=== PATIENT | female | born 1970 | race Caucasian/White ===

== ENCOUNTER 2016-12-28 17:59 | Emergency (ER) | payer OTHER ==
--- NOTE | 2016-12-28 18:16 | ED ---
Psych HPI - General Source: patient, RN notes reviewed Mode of arrival: EMS <Elizabeth Hillman - Last Filed: 12/29/16 02:56> <Toño Campos - Last Filed: 12/29/16 09:38> - General Chief Complaint: Psychiatric Symptoms Stated Complaint: ETOH Time Seen by Provider: 12/28/16 18:01 - History of Present Illness Initial Comments: 46-year-old female presents to the emergency department with a chief complaint of alcohol abuse. Patient states she is an alcoholic. Patient states that she has been to rehab about 2 years ago. Patient states she drinks due to financial issues at home. Patient denies any suicidal ideation to me however per family and the patient was suicidal and ate 2 containers of toothpaste. Patient denies this time and she denies any suicidal or homicidal ideation. Patient states that "her family wants her to go to rehab." Patient at this time is not complaining of any medical complaints.Patient denies any recent fever, chills, shortness of breath, chest pain, back pain, abdominal pain, nausea vomiting, numbness or tingling, dysuria or hematuria, constipation or diarrhea, headaches or visual changes, or any other current symptoms. (Elizabeth Hillman) - Related Data Home Medications Medication Instructions Recorded Confirmed NIFEdipine XL [Procardia Xl] 60 mg PO DAILY 12/28/16 12/28/16 Pantoprazole Sodium [Protonix] 40 mg PO DAILY 12/28/16 12/28/16 Previous Rx's Medication Instructions Recorded Ranitidine HCl [Zantac] 150 mg PO BID #30 tab 05/30/16 Allergies Allergy/AdvReac Type Severity Reaction Status Date / Time Penicillins Allergy Rash/Hives Verified 12/28/16 18:50 Sulfa (Sulfonamide Allergy Rash/Hives Verified 12/28/16 18:50 Antibiotics) sulfamethoxazole Allergy Rash/Hives Verified 12/28/16 18:50 [From Bactrim] trimethoprim [From Bactrim] Allergy Rash/Hives Verified 12/28/16 18:50 Review of Systems ROS Other: All systems not noted in ROS Statement are negative. <Elizabeth Hillman - Last Filed: 12/29/16 02:56> ROS Other: All systems not noted in ROS Statement are negative. <Toño Campos - Last Filed: 12/29/16 09:38> ROS Statement: Those systems with pertinent positive or pertinent negative responses have been documented in the HPI. Past Medical History Past Medical History: No Reported History Additional Past Medical History / Comment(s): raynauds History of Any Multi-Drug Resistant Organisms: None Reported Past Surgical History: Back Surgery Past Anesthesia/Blood Transfusion Reactions: No Reported Reaction Past Psychological History: Anxiety, Depression Smoking Status: Never smoker Past Alcohol Use History: Abuse, Daily, Heavy Past Drug Use History: None Reported - Past Family History Mother Family Medical History: Cancer Additional Family Medical History / Comment(s): pancreatic Father Additional Family Medical History / Comment(s): alcoholism. <Elizabeth Hillman - Last Filed: 12/29/16 02:56> General Exam Limitations: no limitations General appearance: alert, in no apparent distress Head exam: Present: atraumatic ENT exam: Present: normal exam, mucous membranes moist Neck exam: Present: normal inspection. Absent: tenderness, meningismus, lymphadenopathy Respiratory exam: Present: normal lung sounds bilaterally. Absent: respiratory distress, wheezes, rales, rhonchi, stridor Cardiovascular Exam: Present: regular rate, normal rhythm, normal heart sounds. Absent: systolic murmur, diastolic murmur, rubs, gallop, clicks Neurological exam: Present: alert, oriented X3, CN II-XII intact, normal gait. Absent: motor sensory deficit Psychiatric exam: Present: depressed. Absent: homicidal ideation, suicidal ideation Skin exam: Present: warm, dry, intact, normal color. Absent: rash <Elizabeth Hillman - Last Filed: 12/29/16 02:56> Course <Elizabeth Hillman - Last Filed: 12/29/16 02:56> <Toño Campos - Last Filed: 12/29/16 09:38> Vital Signs 12/28/16 12/28/16 12/29/16 18:02 21:48 00:01 Temperature 99.0 F Pulse Rate 78 98 84 Respiratory 18 18 18 Rate Blood Pressure 129/84 132/83 120/75 O2 Sat by Pulse 100 99 97 Oximetry 12/29/16 12/29/16 05:20 07:38 Temperature 98.4 F 97.2 F L Pulse Rate 90 96 Respiratory 18 18 Rate Blood Pressure 128/71 139/76 O2 Sat by Pulse 99 99 Oximetry - Reevaluation(s) Reevaluation #1: 12/29/16 02:56 This case will be signed out to Dr. Cuello. (Elizabeth Hillman) Reevaluation #2: 12/29/16 09:38 Please patient is medically clear for psychiatric evaluation (Toño Campos) Medical Decision Making <Elizabeth Hillman - Last Filed: 12/29/16 02:56> <Toño Campos - Last Filed: 12/29/16 09:38> - Medical Decision Making 46-year-old female presents to the emergency department with a chief complaint of EtOH abuse. Patient does have dictation due to family state patient states that she was suicidal to them. At this time the patient does not appear to be suffering acute medical emergency. This time patient is cleared to be evaluated by psychiatry. (Elizabeth Hillman) 46 female ER for evaluation of psychiatric disease. Patient seen and evaluated by psychiatry, currently not homicidal or suicidal. Patient will be discharged home (Toño Campos) - Lab Data Lab Results 12/28/16 12/28/16 12/29/16 Range/Units 18:20 18:20 05:30 POC Glucose (mg/dL) 101 H (75-99) mg/dL POC Glu Stock Checker ID [email or web address] Urine Opiates Screen Not Detected (NotDetected) Ur Oxycodone Screen Not Detected (NotDetected) Urine Methadone Screen Not Detected (NotDetected) Ur Propoxyphene Screen Not Detected (NotDetected) Ur Barbiturates Screen Not Detected (NotDetected) U Tricyclic Antidepress Not Detected (NotDetected) Ur Phencyclidine Scrn Not Detected (NotDetected) Ur Amphetamines Screen Not Detected (NotDetected) U Methamphetamines Scrn Not Detected (NotDetected) U Benzodiazepines Scrn Not Detected (NotDetected) Urine Cocaine Screen Not Detected (NotDetected) U Marijuana (THC) Screen Not Detected (NotDetected) Serum Alcohol 331 mg/dL Disposition <Elizabeth Hillman - Last Filed: 12/29/16 02:56> <Toño Campos - Last Filed: 12/29/16 09:38> Clinical Impression: Alcoholic intoxication, Depression Disposition: HOME SELF-CARE Condition: Good Instructions: Abuse of Alcohol (ED) Referrals: None,Stated [Primary Care Provider] - 1-2 days
[2016-12-28] MEDS ORDERED: THIAMINE 100 MG/ML 2 ML VIAL IM STA (20:15)
[2016-12-28] MEDS ORDERED: LORazepam 2 MG/ML SYRINGE IV PRN ×3 (20:15)
[2016-12-28] MEDS ORDERED: ONDANSETRON ODT 4 MG TAB PO STA (22:15)
[2016-12-28] MEDS ORDERED: ACETAMINOPHEN TAB 500 MG TAB PO STA (22:17)
[2016-12-29] MEDS ORDERED: ONDANSETRON ODT 4 MG TAB PO STA ×2 (01:26→05:31)
[2016-12-29] MEDS ORDERED: ACETAMINOPHEN TAB 500 MG TAB PO STA (05:19)
[2016-12-29 05:37] LABS: Glucose,Whole Blood 101 mg/dL (75-99)
[2016-12-29 09:48] VITALS: BP 135/84; PULSE 80; RESP 20; TEMP 97.8
[2016-12-29] MEDS ORDERED: THIAMINE 100 MG TAB PO SCH (12:00)
== END 2016-12-29 09:46 | disposition home or self-care (01) ==
LOC: EC 17:59
DX: F10.129 Alcohol abuse with intoxication, unspecified (principal); F32.9 Major depressive disorder, single episode, unspecified; Z79.899 Other long term (current) drug therapy; Z88.0 Allergy status to penicillin; Z88.1 Allergy status to other antibiotic agents; Z88.2 Allergy status to sulfonamides
CPT/HCPCS: 36415 ×2; 80306; 80320; 99284; 96372; J3411

== ENCOUNTER 2019-06-03 15:28 | Emergency (ER) | payer MEDICAID, OTHER ==
[2019-06-03 15:52] VITALS: RESP 18; TEMP 99.5
[2019-06-03] MEDS ORDERED: ONDANSETRON 4 MG/2 ML VIAL IVP STA (16:34)
[2019-06-03] MEDS ORDERED: FAMOTIDINE 20 MG/2 ML VIAL IV STA (16:34)
[2019-06-03] MEDS ORDERED: SODIUM CHLORIDE 0.9% 1,000 ML IV ONE (16:34)
[2019-06-03] MEDS ORDERED: SODIUM CHLORIDE 0.9% 500 ML 500 ML IV ONE (16:34)
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
[2019-06-03 17:38] VITALS: BP 120/96; PULSE 86
== END 2019-06-03 18:03 | disposition home or self-care (01) ==
LOC: EC 15:28
DX: F10.129 Alcohol abuse with intoxication, unspecified (principal); Z79.899 Other long term (current) drug therapy; Z88.0 Allergy status to penicillin; Z88.1 Allergy status to other antibiotic agents; Z88.2 Allergy status to sulfonamides
CPT/HCPCS: 99283; 96374; 96375; 96361; J2405

== ENCOUNTER 2024-03-15 13:44 | Observation (INO) | payer MEDICAID, OTHER ==
--- NOTE | 2024-03-15 14:21 | ED ---
Abdominal Pain HPI - General Source: patient, RN notes reviewed Mode of arrival: ambulatory Limitations: no limitations - History of Present Illness MD Complaint: abdominal pain <Lucille Haynes - Last Filed: 03/15/24 14:19> <Coty Gonsales - Last Filed: 03/16/24 11:36> - General Chief Complaint: Abdominal Pain Stated Complaint: Abdominal Pain Time Seen by Provider: 03/15/24 17:50 - History of Present Illness Initial Comments: Quick Note: This is a 53-year-old female who presents to the emergency department for abdominal pain. States that it started 5 days ago. This was initially in the lower abdomen and is now encompassing the majority of the abdomen. Reports associated nausea and vomiting. She initially had diarrhea, but states that she has now been constipated. (Lucille Haynes) 53-year-old female who presents emergency department for abdominal pain. States that it started 5 days ago. Pain is in the left lower quadrant. She has as sociated nausea with decreased appetite. Patient reports to constipation and has not had a bowel movement in several days. She also admits to fevers. No changes in her urination to include dysuria, hematuria or difficulty voiding. No vaginal bleeding or discharge. No concern for sexually transmitted infections. Patient denies history of STDs or PID. Patient's last menstrual cycle was 2 years ago. No history of similar pain in the past. No other alleviating, precipitating or modifying factors (Coty Gonsales) - Related Data Home Medications Medication Instructions Recorded Confirmed Pantoprazole Sodium [Protonix] 40 mg PO DAILY 12/28/16 03/15/24 ARIPiprazole [Abilify] 1 mg PO HS 03/15/24 03/15/24 Escitalopram [Lexapro] 20 mg PO HS 03/15/24 03/15/24 Ondansetron Odt [Zofran Odt] 4 mg PO TID PRN 03/15/24 03/15/24 traZODone HCL [Desyrel] 50 mg PO HS PRN 03/15/24 03/15/24 Allergies Allergy/AdvReac Type Severity Reaction Status Date / Time cephalexin [From Keflex] Allergy Rash/Hives Verified 03/15/24 19:32 Penicillins Allergy Rash/Hives Verified 03/15/24 19:32 Sulfa (Sulfonamide Allergy Rash/Hives Verified 03/15/24 19:32 Antibiotics) sulfamethoxazole Allergy Rash/Hives Verified 03/15/24 19:32 [From Bactrim] trimethoprim [From Bactrim] Allergy Rash/Hives Verified 03/15/24 19:32 Review of Systems ROS Other: All systems not noted in ROS Statement are negative. <ChauaaronLucille - Last Filed: 03/15/24 14:19> ROS Other: All systems not noted in ROS Statement are negative. <Coty Gonsales Linh - Last Filed: 03/16/24 11:36> ROS Statement: Those systems with pertinent positive or pertinent negative responses have been documented in the HPI. Past Medical History Past Medical History: No Reported History Additional Past Medical History / Comment(s): raynauds History of Any Multi-Drug Resistant Organisms: None Reported Past Surgical History: Back Surgery Past Anesthesia/Blood Transfusion Reactions: No Reported Reaction Past Psychological History: Anxiety, Depression Past Alcohol Use History: Abuse, Daily, Heavy Past Drug Use History: None Reported - Past Family History Mother Family Medical History: Cancer Additional Family Medical History / Comment(s): pancreatic Father Additional Family Medical History / Comment(s): alcoholism. <Lucille Haynes - Last Filed: 03/15/24 14:19> General Exam <Lucille Haynes - Last Filed: 03/15/24 14:19> General appearance: alert, in no apparent distress Head exam: Present: atraumatic, normocephalic, normal inspection Eye exam: Present: normal appearance, PERRL, EOMI. Absent: scleral icterus, conjunctival injection, periorbital swelling ENT exam: Present: normal exam, mucous membranes moist Neck exam: Present: normal inspection. Absent: tenderness, meningismus, lymphadenopathy Respiratory exam: Present: normal lung sounds bilaterally. Absent: respiratory distress, wheezes, rales, rhonchi, stridor Cardiovascular Exam: Present: normal rhythm, tachycardia, normal heart sounds. Absent: systolic murmur, diastolic murmur, rubs, gallop, clicks GI/Abdominal exam: Present: soft, tenderness (llq tenderness), normal bowel sounds. Absent: distended, guarding, rebound, rigid Extremities exam: Present: normal inspection, full ROM, normal capillary refill. Absent: tenderness, pedal edema, joint swelling, calf tenderness Back exam: Present: normal inspection Neurological exam: Present: alert, oriented X3, CN II-XII intact Psychiatric exam: Present: normal affect, normal mood Skin exam: Present: warm, dry, intact, normal color. Absent: rash <Coty Gonsales - Last Filed: 03/16/24 11:36> - General Exam Comments Initial Comments: Visual Physical Exam Vital signs reviewed General: Well-appearing, nontoxic, no acute distress. Head: Normocephalic, atraumatic Eyes: PERRLA, EOMI ENT: Airway patent Chest: Nonlabored breathing Skin: No visual rash, normal skin tone Neuro: Alert and oriented 3 Musculoskeletal: No gross abnormalities (Lucille Haynes) Course Vital Signs 03/15/24 03/15/24 03/15/24 14:17 21:20 22:26 Temperature 99 F 100.8 F H 99.2 F Pulse Rate 104 H 115 H Pulse Rate [ Left Brachial] Respiratory 20 16 16 Rate Blood Pressure 109/70 103/57 Blood Pressure [Left Arm] O2 Sat by Pulse 99 98 Oximetry 03/15/24 22:49 Temperature 99.2 F Pulse Rate Pulse Rate [ 108 H Left Brachial] Respiratory 17 Rate Blood Pressure Blood Pressure 98/50 [Left Arm] O2 Sat by Pulse 97 Oximetry Medical Decision Making <Lucille Haynes - Last Filed: 03/15/24 14:19> - Lab Data Result diagrams: 03/16/24 03:09 03/16/24 03:09 <RussellarjunCoty Linh - Last Filed: 03/16/24 11:36> - Medical Decision Making I performed the QuickNote portion of this chart. Signed Lucille Haynes PA-C. (Lucille Haynes) 180 - US read - source identified 1846 - antibiotics ordered by myself Was pt. sent in by a medical professional or institution (ANNIE Anthony, GEOPHYSICAL PROSPECTOR, urgent care, hospital, or senior living...) When possible be specific @ -No Did you speak to anyone other than the patient for history (EMS, parent, family, police, friend...)? What history was obtained from this source @ -No Did you review nursing and triage notes (agree or disagree)? Why? @ -I reviewed and agree with nursing and triage notes Were old charts reviewed (outside hosp., previous admission, EMS record, old EKG, old radiological studies, urgent care reports/EKG's, senior living records)? Report findings @ -No old charts were reviewed Differential Diagnosis (chest pain, altered mental status, abdominal pain women, abdominal pain men, vaginal bleeding, weakness, fever, dyspnea, syncope, headache, dizziness, GI bleed, back pain, seizure, CVA, palpatations, mental health, musculoskeletal)? @ -Differential Abdominal Pain Women: Appendicitis, Cholecystitis, diverticulosis, ischemic bowel, pancreatitis, hepatitis, UTI, gastroenteritis, AAA, incarcerated hernia, bowel obstruction, constipation, inflammatory bowel, hepatitis, peptic ulcer disease, splenic infarction, perforated viscus, vulvitis, ovarian torsion, PID, kidney stone, placenta abruption, this is not meant to be an all-inclusive list EKG interpreted by me (3pts min.). @ -Not done X-rays interpreted by me (1pt min.). @ -None done CT interpreted by me (1pt min.). @ -Yes and demonstrates ovarian mass. Recommend ultrasound to rule out torsion. U/S interpreted by me (1pt. min.). @ -Ultrasound performed which demonstrates no torsion. Possibility of tubo- ovarian abscess What testing was considered but not performed or refused? (CT, X-rays, U/S, labs)? Why? @ -Pelvic exam however patient is in the hallway What meds were considered but not given or refused? Why? @ -None Did you discuss the management of the patient with other professionals (professionals i.e. , PA, GEOPHYSICAL PROSPECTOR, lab, RT, psych nurse, social welfare research worker, desktop administrator, teacher, electronic warfare officer, casework manager)? Give summary @ -Spoke with Dr. Grissom who recommends antibiotics and ID consult. spoke with Dr. Diaz who accepted admission Was smoking cessation discussed for >3mins.? @ -No Was critical care preformed (if so, how long)? @ -No Were there social determinants of health that impacted care today? How? (Homelessness, low income, unemployed, alcoholism, drug addiction, transportation, low edu. Level, literacy, decrease access to med. care, care home, rehab)? @ -No Was there de-escalation of care discussed even if they declined (Discuss DNR or withdrawal of care, Hospice)? DNR status @ -No What co-morbidities impacted this encounter? (DM, HTN, Smoking, COPD, CAD, Cancer, CVA, ARF, Chemo, Hep., AIDS, mental health diagnosis, sleep apnea, morbid obesity)? @ -None Was patient admitted / discharged? Hospital course, mention meds given and route, prescriptions, significant lab abnormalities, going to OR and other pertinent info. @ -Upon arrival patient was evaluated in the waiting room and studies were ordered. IV access was established and laboratory studies are conducted. CT and ultrasound was performed. Patient is then brought back to a hallway bed. I did perform a physical assessment and discussed results. Ultrasound does recognize the patient source of infection as possible tubo-ovarian abscess. I did call OBGYN contact lens blocker. Dr. Grissom presents to the emergency department to evaluate another patient and I did speak to him in regards to this patient. He does not recommend any surgical intervention. He does recommend antibiotics. Antibiotic choice is difficult on this patient due to her allergies. She does think that she tolerated Rocephin well. I discussed attempting to try another IV cephalosporin for the patient was agreeable. Spoke with Dr. Diaz for the admission. Undiagnosed new problem with uncertain prognosis? @ -No Drug Therapy requiring intensive monitoring for toxicity (Heparin, Nitro, Insulin, Cardizem)? @ -No Were any procedures done? @ -No Diagnosis/symptom? @ -Acute left lower quadrant abdominal pain, pyrexia, suspected tubo-ovarian abscess Acute, or Chronic, or Acute on Chronic? @ -Acute Uncomplicated (without systemic symptoms) or Complicated (systemic symptoms)? @ -Complicated Side effects of treatment? @ -No Exacerbation, Progression, or Severe Exacerbation? @ -No Poses a threat to life or bodily function? How? (Chest pain, USA, CA, pneumonia, PE, COPD, DKA, ARF, appy, cholecystitis, CVA, Diverticulitis, Homicidal, Suicidal, threat to staff... and all critical care pts) @ -No (Coty Gonsales) - Lab Data Lab Results 03/15/24 03/15/24 03/15/24 Range/Units 14:10 14:10 14:10 WBC 15.3 H (3.8-10.6) k/uL RBC 4.01 (3.80-5.40) m/uL Hgb 12.8 (11.4-16.0) gm/dL Hct 37.1 (34.0-46.0) % MCV 92.5 (80.0-100.0) fL MCH 32.0 (25.0-35.0) pg MCHC 34.6 (31.0-37.0) g/dL RDW 13.6 (11.5-15.5) % Plt Count 242 (150-450) k/uL MPV 9.4 Neutrophils % 86 % Lymphocytes % 7 % Monocytes % 5 % Eosinophils % 2 % Basophils % 0 % Neutrophils # 13.2 H (1.3-7.7) k/uL Lymphocytes # 1.1 (1.0-4.8) k/uL Monocytes # 0.7 (0-1.0) k/uL Eosinophils # 0.2 (0-0.7) k/uL Basophils # 0.1 (0-0.2) k/uL Sodium 135 L (137-145) mmol/L Potassium 3.3 L (3.5-5.1) mmol/L Chloride 98 (98-107) mmol/L Carbon Dioxide 27 (22-30) mmol/L Anion Gap 10 mmol/L BUN 13 (7-17) mg/dL Creatinine 0.49 L (0.52-1.04) mg/dL Est GFR (CKD-EPI)AfAm >90 (>60 ml/min/1.73 sqM) Est GFR (CKD-EPI)NonAf >90 (>60 ml/min/1.73 sqM) Glucose 110 H (74-99) mg/dL Plasma Lactic Acid Freddy 1.0 (0.7-2.0) mmol/L Calcium 9.7 (8.4-10.2) mg/dL Total Bilirubin 1.2 (0.2-1.3) mg/dL AST 33 (14-36) U/L ALT 22 (4-34) U/L Alkaline Phosphatase 93 (38-126) U/L Total Protein 6.8 (6.3-8.2) g/dL Albumin 4.2 (3.5-5.0) g/dL Amylase 38 (30-110) U/L Lipase 24 (23-300) U/L Urine Color Urine Appearance (Clear) Urine pH (5.0-8.0) Ur Specific Otis (1.001-1.035) Urine Protein (Negative) Urine Glucose (UA) (Negative) Urine Ketones (Negative) Urine Blood (Negative) Urine Nitrite (Negative) Urine Bilirubin (Negative) Urine Urobilinogen (<2.0) mg/dL Ur Leukocyte Esterase (Negative) Urine RBC (0-5) /hpf Urine WBC (0-5) /hpf Ur Squamous Epith Cells (0-4) /hpf Urine Mucus (None) /hpf Urine HCG, Qual (Not Detectd) 03/15/24 03/15/24 Range/Units 16:53 16:53 WBC (3.8-10.6) k/uL RBC (3.80-5.40) m/uL Hgb (11.4-16.0) gm/dL Hct (34.0-46.0) % MCV (80.0-100.0) fL MCH (25.0-35.0) pg MCHC (31.0-37.0) g/dL RDW (11.5-15.5) % Plt Count (150-450) k/uL MPV Neutrophils % % Lymphocytes % % Monocytes % % Eosinophils % % Basophils % % Neutrophils # (1.3-7.7) k/uL Lymphocytes # (1.0-4.8) k/uL Monocytes # (0-1.0) k/uL Eosinophils # (0-0.7) k/uL Basophils # (0-0.2) k/uL Sodium (137-145) mmol/L Potassium (3.5-5.1) mmol/L Chloride (98-107) mmol/L Carbon Dioxide (22-30) mmol/L Anion Gap mmol/L BUN (7-17) mg/dL Creatinine (0.52-1.04) mg/dL Est GFR (CKD-EPI)AfAm (>60 ml/min/1.73 sqM) Est GFR (CKD-EPI)NonAf (>60 ml/min/1.73 sqM) Glucose (74-99) mg/dL Plasma Lactic Acid Freddy (0.7-2.0) mmol/L Calcium (8.4-10.2) mg/dL Total Bilirubin (0.2-1.3) mg/dL AST (14-36) U/L ALT (4-34) U/L Alkaline Phosphatase (38-126) U/L Total Protein (6.3-8.2) g/dL Albumin (3.5-5.0) g/dL Amylase (30-110) U/L Lipase (23-300) U/L Urine Color Yellow Urine Appearance Clear (Clear) Urine pH 6.5 (5.0-8.0) Ur Specific Otis >1.050 H (1.001-1.035) Urine Protein Trace H (Negative) Urine Glucose (UA) Negative (Negative) Urine Ketones Trace H (Negative) Urine Blood Negative (Negative) Urine Nitrite Negative (Negative) Urine Bilirubin Negative (Negative) Urine Urobilinogen 6.0 (<2.0) mg/dL Ur Leukocyte Esterase Moderate H (Negative) Urine RBC 6 H (0-5) /hpf Urine WBC 7 H (0-5) /hpf Ur Squamous Epith Cells 1 (0-4) /hpf Urine Mucus Few H (None) /hpf Urine HCG, Qual Not Detected (Not Detectd) Disposition <Lucille Haynes - Last Filed: 03/15/24 14:19> Is patient prescribed a controlled substance at d/c from ED?: No Time of Disposition: 20:49 Decision to Admit Reason: Admit from EC Decision Date: 03/15/24 Decision Time: 20:49 <Coty Gonsales - Last Filed: 03/16/24 11:36> Clinical Impression: Tubo-ovarian abscess, LLQ pain, Fever Disposition: ADMITTED IP TO THIS HOSP Condition: Stable
[2024-03-15 14:41] LABS: Basophils # (A) 0.1 k/uL (0-0.2); Basophils % (A) 0 %; Eosinophils # (A) 0.2 k/uL (0-0.7); Eosinophils % (A) 2 %; HCT 37.1 % (34.0-46.0); HGB 12.8 gm/dL (11.4-16.0); Lymphocytes # (A) 1.1 k/uL (1.0-4.8); Lymphocytes % (A) 7 %; MCHC 34.6 g/dL (31.0-37.0); MCV 92.5 fL (80.0-100.0); Mean Platelet Volume 9.4; Monocytes # (A) 0.7 k/uL (0-1.0); Monocytes % (A) 5 %; Neutrophils # (A) 13.2 k/uL (1.3-7.7); Neutrophils % (A) 86 %; Platelet Count 242 k/uL (150-450); RBC 4.01 m/uL (3.80-5.40); RDW 13.6 % (11.5-15.5); WBC 15.3 k/uL (3.8-10.6)
[2024-03-15 15:25] LABS: ALT 22 U/L (4-34); AST 33 U/L (14-36); African American GFR (CKD) >90 (>60 ml/min/1.73 sqM); Albumin 4.2 g/dL (3.5-5.0); Alkaline Phosphatase 93 U/L (38-126); Amylase 38 U/L (30-110); Anion Gap 10 mmol/L; Blood Urea Nitrogen 13 mg/dL (7-17); Calcium 9.7 mg/dL (8.4-10.2); Carbon Dioxide 27 mmol/L (22-30); Chloride 98 mmol/L (98-107); Glucose 110 mg/dL (74-99); Lipase 24 U/L (23-300); Non-African American GFR(CKD) >90 (>60 ml/min/1.73 sqM); Potassium 3.3 mmol/L (3.5-5.1); Sodium 135 mmol/L (137-145); Total Bilirubin 1.2 mg/dL (0.2-1.3); Total Protein 6.8 g/dL (6.3-8.2)
--- NOTE | 2024-03-15 16:37 | CT ---
EXAMINATION TYPE: CT abdomen pelvis w con DATE OF EXAM: 03/15/2024 COMPARISON: NONE HISTORY: 53-year-old female lower abdomen pain. With fever chills and nausea and vomiting TECHNIQUE: Contiguous axial scanning of the abdomen and pelvis following administration of 100 ml Iso carlitos 300 IV contrast. Delayed images through the kidneys and coronal/sagittal reconstructions perform ed. CT DLP: 607.5 mGycm Automated exposure control for dose reduction was used. FINDINGS: Partially visualized breast implants. Heart normal size without pericardial effusion. Lung bases ruth r without pleural effusion. Low attenuation of the hepatic parenchyma suggesting underlying fatty infiltration. Portal venous sys tem is patent. No biliary ductal dilatation. Gallbladder, adrenal glands, left kidney, spleen, and atrophic pancreas and no gross abnormality. There is a cortical fat density lesion measuring 1.3 cm posterior mid right kidney suggesting a small AML. Tiny fatty umbilical hernia noted. No dilated small bowel, free fluid, or free air. No mesenteric or retroperitoneal lymphadenopathy. Mild proximal sigmoid diverticulosis. No convincing findings of acute diverticulitis. However, there is some inflammation in the left lower quadrant/left adnexa. This seems to be centered over a multilocular cystic lesion of the left adnexa measuring 4.6 cm. Multi stranding is present he re. The adjacent sigmoid colon shows mild mural thickening probably on a reactive basis Uterus is anteverted. IUD in place. Right ovary not well seen. No pelvic lymphadenopathy identified. Bones: Moderate to severe degenerative disc disease L5-S1. Hypertrophic facet arthropathy lower lumba r spine with degenerative grade 1 retrolisthesis L4-L5. IMPRESSION: 1. INFLAMMATION WHICH APPEARS TO BE CENTERED AT THE LEFT OVARY WHICH DEMONSTRATES A MULTILOCULAR CYST IC STRUCTURE MEASURING 4.6 CM. THE EXACT ETIOLOGY IS UNCLEAR. OVARIAN TORSION AND TUBO-OVARIAN ABSCES S ARE SOME DIFFERENTIAL POSSIBILITIES. 2. THERE IS SOME MURAL THICKENING OF THE ADJACENT MID SIGMOID COLON LIKELY REACTIVE INFLAMMATION. PRO XIMAL SIGMOID DIVERTICULOSIS WITHOUT CONVINCING FINDINGS OF ACUTE DIVERTICULITIS.
[2024-03-15 17:20] LABS: Appearance,Urine Clear (Clear); Bilirubin,Urine Negative (Negative); Blood,Urine Negative (Negative); Color,Urine Yellow; Glucose,Urine (UA) Negative (Negative); Ketones,Urine Trace (Negative); Leukocyte Esterase,Urine Moderate (Negative); Mucus,Urine Few /hpf; Nitrite,Urine Negative (Negative); PH, Urine 6.5 (5.0-8.0); Protein,Urine Trace (Negative); RBC,Urine 6 /hpf (0-5); Squamous Epithelial Cell,Urine 1 /hpf (0-4); WBC,Urine 7 /hpf (0-5)
[2024-03-15 17:28] LABS: Specific Gravity,Urine >1.050 (1.001-1.035)
--- NOTE | 2024-03-15 18:09 | US ---
EXAMINATION TYPE: US transvaginal plus Dopplers DATE OF EXAM: 03/15/2024 COMPARISON: CT today CLINICAL INDICATION: Female, 53 years old with history of Abdominal pain, abnormal CT; abnormal CT. G 2P3 (twins). No pelvic surgeries. IUD TECHNIQUE: Transvaginal (TV). Date of LMP: 2 years ago EXAM MEASUREMENTS: Uterus: 6.4 x 3.6 x 3.1 cm Endometrial Stripe: 0.5 cm Right Ovary: not seen cm Left Ovary: 5.0 x 3.9 x 3.5 cm 1. Uterus: Anteverted and otherwise wnl 2. Endometrium: wnl, IUD in place 3. Right Ovary: Not seen due to bowel gas 4. Left Ovary: complex area seen with septations measuring 3.9 x 3.2 x 2.5cm Spectral, color and waveform doppler imaging shows good arterial and venous flow within the ovaries ; there is no evidence for ovarian torsion. 5. Bilateral Adnexa: wnl 6. Posterior cul-de-sac: wnl IMPRESSION: Complex cystic area left adnexa measuring 3.9 cm. Satisfactory arterial and venous flow argues agains t ovarian torsion. Given the inflammation seen on CT, correlate to exclude the possibility of tubo-ov ninoska abscess.
[2024-03-15] MEDS ORDERED: NALOXONE 0.4 MG/ML 1 ML VIAL IV PRN (20:50)
[2024-03-15] MEDS: SODIUM CHLORIDE 0.9% 1,000 ML IV ONE (21:24)
[2024-03-15] MEDS: ONDANSETRON 4 MG/2 ML VIAL IVP STA (21:25)
[2024-03-15] MEDS: MORPHINE SULFATE 4 MG/ML SYRINGE IVP STA (21:59)
[2024-03-15] MEDS: DOXYCYCLINE 100 MG in SODIUM CHLORIDE 0.9% 100 ML IVPB SCH (23:52)
[2024-03-15] MEDS: SODIUM CHLORIDE 0.9% 1,000 ML IV SCH (23:52)
--- NOTE | 2024-03-16 01:21 | P.HPIM ---
History of Present Illness H&P Date: 03/15/24 Patient is a 53-year-old female with PMH of anxiety and depression who had presented to the emergency room with complaints of abdominal pain with nausea and vomiting. Patient reports that her symptoms started roughly 5 to 6 days ago with left-sided abdominal achiness. Over the following few days, she developed nausea with persistent vomiting and inability to tolerate liquids or solids. Notes that the pain has been gradually worsening, left lower quadrant, nonradiating, 8 out of 10 at maximal intensity, worsened with movement, with no clear alleviating factors. Denies fever or chills. Also reports constipation during this time. Does report history of diverticulosis. Denies history of p elvic inflammatory disease or STIs. Does note however that she has been with a new partner over the last 1 year and is requesting screening for STIs. CT abdomen and pelvis in the emergency room revealed inflammation of the left ovary, concerning for tubo-ovarian abscess versus ovarian torsion with some mural thickening of the adjacent sigmoid colon suspected reactive. There was adjacent diverticulosis without overt findings of acute diverticulitis. Subsequent transvaginal ultrasound revealed good arterial and venous flow within the ovaries with no evidence for ovarian torsion with an IUD in place. Laboratory evaluation did reveal leukocytosis of 15.3, sodium 135 potassium 3.3, creatinine 0.14, glucose 110, with UA showing 7 WBC, 6 RBCs, with moderate leukocyte esterase and trace ketones. ED documentation reviewed and case discussed with ED provider. Review of systems: Pertinent positives and negatives as discussed in HPI, a complete review of systems was performed and all other systems are negative. Physical examination: Vital signs reviewed General: non toxic, no distress, appears at stated age, normal weight Derm: no unusual rashes/lesions, warm Head: atraumatic, normocephalic, symmetric Eyes: EOMI, no lid lag, anicteric sclera, pupils equal round reactive to light ENT: Nose and ears atraumatic Neck: No cervical lymphadenopathy, trachea midline, supple Mouth: no lip lesion, mucus membranes moist Cardiovascular: S1S2 reg, no murmur, positive dorsalis pedis pulse bilateral, no edema Lungs: CTA bilateral, no rhonchi, no rales, no accessory muscle use Abdominal: soft, left lower quadrant tenderness with minimal guarding, no rigidity or rebound tenderness noted Ext: muscle strength 5 out of 5 in all 4 extremities grossly, no gross muscle atrophy, no contractures, Neuro: CN II-XI grossly intact, no gross focal neuro deficits Psych: Alert, oriented, appropriate affect Assessment: Sepsis secondary to tubo-ovarian abscess versus less likely diverticulitis Hypokalemia Hyponatremia, suspect due to ongoing pain Chronic conditions: Anxiety, depression Imaging: CT abdomen and pelvis in the emergency room revealed inflammation of the left ovary, concerning for tubo-ovarian abscess versus ovarian torsion with some mural thickening of the adjacent sigmoid colon suspected reactive. There was adjacent diverticulosis without overt findings of acute diverticulitis. Subsequent transvaginal ultrasound revealed good arterial and venous flow within the ovaries with no evidence for ovarian torsion with an IUD in place. Data Review: Laboratory evaluation did reveal leukocytosis of 15.3, sodium 135 potassium 3.3, creatinine 0.14, glucose 110, with UA showing 7 WBC, 6 RBCs, with moderate leukocyte esterase and trace ketones. Plan: Continue patient on cefoxitin and doxycycline Infectious disease and TWISTING OPERATOR consulted Follow-up blood cultures Continue with IV fluid normal saline 130 cc/h Morphine for pain control Continue with antiemetics Zofran Replace potassium and monitor for resolution Monitor BMP Perform STI screen as requested by patient DVT prophylaxis: Lovenox subcu The patient is admitted with an anticipated fewer than 2 midnight stay for margi luation of sepsis CODE STATUS: Full Code Discussed with: Patient Anticipated discharge place: Home Past Medical History Past Medical History: No Reported History, GERD/Reflux Additional Past Medical History / Comment(s): raynauds, crest disease History of Any Multi-Drug Resistant Organisms: None Reported Past Surgical History: Back Surgery Additional Past Surgical History / Comment(s): bladder sling-2009 Past Anesthesia/Blood Transfusion Reactions: No Reported Reaction Past Psychological History: Anxiety, Depression Smoking Status: Former smoker Past Alcohol Use History: None Reported Additional Past Alcohol Use History / Comment(s): former hx of alcohol abuse Past Drug Use History: None Reported - Past Family History Mother Family Medical History: Cancer Additional Family Medical History / Comment(s): pancreatic Father Family Medical History: Coronary Artery Disease (CAD) Additional Family Medical History / Comment(s): alcoholism. from [place] Medications and Allergies Home Medications Medication Instructions Recorded Confirmed Type Pantoprazole Sodium [Protonix] 40 mg PO DAILY 12/28/16 03/15/24 History ARIPiprazole [Abilify] 1 mg PO HS 03/15/24 03/15/24 History Escitalopram [Lexapro] 20 mg PO HS 03/15/24 03/15/24 History Ondansetron Odt [Zofran Odt] 4 mg PO TID PRN 03/15/24 03/15/24 History traZODone HCL [Desyrel] 50 mg PO HS PRN 03/15/24 03/15/24 History Allergies Allergy/AdvReac Type Severity Reaction Status Date / Time cephalexin [From Keflex] Allergy Rash/Hives Verified 03/15/24 19:32 Penicillins Allergy Rash/Hives Verified 03/15/24 19:32 Sulfa (Sulfonamide Allergy Rash/Hives Verified 03/15/24 19:32 Antibiotics) sulfamethoxazole Allergy Rash/Hives Verified 03/15/24 19:32 [From Bactrim] trimethoprim [From Bactrim] Allergy Rash/Hives Verified 03/15/24 19:32 Physical Exam Vitals: Vital Signs Temp Pulse Pulse Resp BP BP Pulse Ox 03/15/24 22:49 99.2 F 108 H 17 98/50 97 03/15/24 22:26 99.2 F 16 03/15/24 21:20 100.8 F H 115 H 16 103/57 98 03/15/24 14:17 99 F 104 H 20 109/70 99 Intake and Output 03/15/24 03/15/24 03/16/24 14:59 22:59 06:59 Other: # Voids 1 Weight 63.957 kg 63.957 kg Results CBC & Chem 7: 03/15/24 14:10 03/15/24 14:10 Labs: Abnormal Lab Results - Last 24 Hours (Table) 03/15/24 03/15/24 03/15/24 Range/Units 14:10 14:10 16:53 WBC 15.3 H (3.8-10.6) k/uL Neutrophils # 13.2 H (1.3-7.7) k/uL Sodium 135 L (137-145) mmol/L Potassium 3.3 L (3.5-5.1) mmol/L Creatinine 0.49 L (0.52-1.04) mg/dL Glucose 110 H (74-99) mg/dL Ur Specific [place]wood >1.050 H (1.001-1.035) Urine Protein Trace H (Negative) Urine Ketones Trace H (Negative) Ur Leukocyte Esterase Moderate H (Negative) Urine RBC 6 H (0-5) /hpf Urine WBC 7 H (0-5) /hpf Urine Mucus Few H (None) /hpf
[2024-03-16] MEDS: POTASSIUM CHLORIDE ER 20 MEQ TAB.ER PO STA (01:49)
[2024-03-16] MEDS: ACETAMINOPHEN TAB 325 MG TAB PO PRN (02:12)
[2024-03-16] MEDS: MORPHINE SULFATE 2 MG/ML SYRINGE IVP STA (02:56)
[2024-03-16 03:40] LABS: Basophils % (A) 0 %; Eosinophils # (A) 0.1 k/uL (0-0.7); Eosinophils % (A) 0 %; HCT 33.2 % (34.0-46.0); Lymphocytes # (A) 1.2 k/uL (1.0-4.8); Lymphocytes % (A) 10 %; MCH 31.5 pg (25.0-35.0); MCHC 33.3 g/dL (31.0-37.0); MCV 94.7 fL (80.0-100.0); Mean Platelet Volume 9.7; Monocytes # (A) 0.8 k/uL (0-1.0); Monocytes % (A) 7 %; Neutrophils # (A) 10.2 k/uL (1.3-7.7); Neutrophils % (A) 82 %; Platelet Count 201 k/uL (150-450); RDW 14.3 % (11.5-15.5); WBC 12.4 k/uL (3.8-10.6)
[2024-03-16 04:01] LABS: African American GFR (CKD) >90 (>60 ml/min/1.73 sqM); Anion Gap 6 mmol/L; Blood Urea Nitrogen 8 mg/dL (7-17); Calcium 8.6 mg/dL (8.4-10.2); Carbon Dioxide 22 mmol/L (22-30); Chloride 104 mmol/L (98-107); Glucose 71 mg/dL (74-99); Non-African American GFR(CKD) >90 (>60 ml/min/1.73 sqM); Potassium 3.7 mmol/L (3.5-5.1); Sodium 132 mmol/L (137-145)
--- NOTE | 2024-03-16 08:52 | P.OBCN ---
History of Present Illness Consult date: 03/16/24 Reason for consult: other (Possible tubo-ovarian abscess) Chief complaint: Left lower quadrant pain with nausea and vomiting, pelvic mass History of present illness: Patient is a 53-year-old 2 para 2-0-0-3 who reports approximately 1 weeks worth of increasing left lower quadrant discomfort as well as significant constipation she additionally developed nausea and vomiting. She was seen in the emergency room where CT scan showed diverticulosis as well as a complex mass in the area of the sigmoid colon and left ovary. Follow-up ultrasound demonstrated a complex stick stick structure which was described in the left ovary. Her presentation did demonstrate both fever and leukocytosis. Given the radiologic findings and physical findings, the patient was admitted for management of possible tubo-ovarian abscess. From a historical perspective, the patient has a Mirena IUD in place for approximately 7 years and had periods up until approximately 2 years ago at which time they stopped. She has no ongoing symptoms nor has she had any symptoms of menopause to include vasomotor symptoms. She has a new partner approximately 1 year ago but is monogamous and denies any vaginal discharge or any other concerns for STDs. This morning, she is feeling significantly better and has no ongoing nausea with a fairly significant diminishment of her pain. She has not required any further narcotics since her admission to the emergency room. Obstetrical history: 2 para 2-0-0-3 with 1 term bhakta delivery and 1 term twin delivery, both vaginally. Method of contraception has been Mirena IUD which remains in place. Gynecologic history: Unremarkable with no history of any infections to include STDs. She has had routine gynecologic care through her primary care doctor. Review of Systems Review of systems is confined to history of present illness. Past Medical History Past Medical History: No Reported History, GERD/Reflux Additional Past Medical History / Comment(s): raynauds, crest disease History of Any Multi-Drug Resistant Organisms: None Reported Past Surgical History: Back Surgery Additional Past Surgical History / Comment(s): bladder sling-2009 Past Anesthesia/Blood Transfusion Reactions: No Reported Reaction Past Psychological History: Anxiety, Depression Smoking Status: Former smoker Past Alcohol Use History: None Reported Additional Past Alcohol Use History / Comment(s): former hx of alcohol abuse Past Drug Use History: None Reported - Past Family History Mother Family Medical History: Cancer Additional Family Medical History / Comment(s): pancreatic Father Family Medical History: Coronary Artery Disease (CAD) Additional Family Medical History / Comment(s): alcoholism. from [place] Medications and Allergies Home Medications Medication Instructions Recorded Confirmed Type Pantoprazole Sodium [Protonix] 40 mg PO DAILY 12/28/16 03/15/24 History ARIPiprazole [Abilify] 1 mg PO HS 03/15/24 03/15/24 History Escitalopram [Lexapro] 20 mg PO HS 03/15/24 03/15/24 History Ondansetron Odt [Zofran Odt] 4 mg PO TID PRN 03/15/24 03/15/24 History traZODone HCL [Desyrel] 50 mg PO HS PRN 03/15/24 03/15/24 History Allergies Allergy/AdvReac Type Severity Reaction Status Date / Time cephalexin [From Keflex] Allergy Rash/Hives Verified 03/15/24 19:32 Penicillins Allergy Rash/Hives Verified 03/15/24 19:32 Sulfa (Sulfonamide Allergy Rash/Hives Verified 03/15/24 19:32 Antibiotics) sulfamethoxazole Allergy Rash/Hives Verified 03/15/24 19:32 [From Bactrim] trimethoprim [From Bactrim] Allergy Rash/Hives Verified 03/15/24 19:32 Exam Vital Signs Temp Pulse Pulse Resp BP BP Pulse Ox 03/16/24 04:00 94/65 03/15/24 22:49 99.2 F 108 H 17 98/50 97 03/15/24 22:26 99.2 F 16 03/15/24 21:20 100.8 F H 115 H 16 103/57 98 03/15/24 14:17 99 F 104 H 20 109/70 99 Intake and Output 03/15/24 03/16/24 03/16/24 22:59 06:59 14:59 Intake Total 480 Balance 480 Intake: Oral 480 Other: # Voids 2 Weight 63.957 kg General, this is a well-developed, well-nourished white female in no acute distress. Her heart has a regular rhythm and rate without murmur. Her lungs are clear to auscultation bilaterally in all wong. Her abdomen is nondistended, soft, with mild generalized tenderness more focal in the left lower quadrant. There is no significant guarding or rebound at this time. Pelvic examination is deferred at this time. Results Result Diagrams: 03/16/24 03:09 03/16/24 03:09 Abnormal Lab Results - Last 24 Hours (Table) 03/15/24 03/15/24 03/15/24 Range/Units 14:10 14:10 16:53 WBC 15.3 H (3.8-10.6) k/uL RBC (3.80-5.40) m/uL Hgb (11.4-16.0) gm/dL Hct (34.0-46.0) % Neutrophils # 13.2 H (1.3-7.7) k/uL Sodium 135 L (137-145) mmol/L Potassium 3.3 L (3.5-5.1) mmol/L Creatinine 0.49 L (0.52-1.04) mg/dL Glucose 110 H (74-99) mg/dL Ur Specific [place] >1.050 H (1.001-1.035) Urine Protein Trace H (Negative) Urine Ketones Trace H (Negative) Ur Leukocyte Esterase Moderate H (Negative) Urine RBC 6 H (0-5) /hpf Urine WBC 7 H (0-5) /hpf Urine Mucus Few H (None) /hpf 03/16/24 03/16/24 Range/Units 03:09 03:09 WBC 12.4 H (3.8-10.6) k/uL RBC 3.50 L (3.80-5.40) m/uL Hgb 11.0 L (11.4-16.0) gm/dL Hct 33.2 L (34.0-46.0) % Neutrophils # 10.2 H (1.3-7.7) k/uL Sodium 132 L (137-145) mmol/L Potassium (3.5-5.1) mmol/L Creatinine 0.45 L (0.52-1.04) mg/dL Glucose 71 L (74-99) mg/dL Ur Specific [place] (1.001-1.035) Urine Protein (Negative) Urine Ketones (Negative) Ur Leukocyte Esterase (Negative) Urine RBC (0-5) /hpf Urine WBC (0-5) /hpf Urine Mucus (None) /hpf Assessment and Plan (1) LLQ pain Current Visit: Yes Status: Acute Code(s): R10.32 - LEFT LOWER QUADRANT PAIN SNOMED Code(s): 303422283 Plan: Patient has been admitted for IV antibiotics. Despite having had a new partner approximately 1 year ago, the patient is not at significant risk for STDs and, with a Mirena IUD in place, is at very low likelihood of developing ascending infectious processes in the pelvis to include tubo-ovarian abscess as the Mirena IUD makes the cervical mucus nearly impenetrable to both sperm but also to infection. It is an independent protector against ascending infection. Given the finding of mild diverticular disease with some inflammation, it does remain possible that she has diverticulitis despite the lack of CT verification. If her findings do represent a tubo-ovarian abscess, I recommend against surgical intervention and would greatly favor aggressive antibiotic therapy with the intention of having approximately 48 hours afebrile with a return of white count to normal and significant clinical improvement. She could then be discharged on oral antibiotics and follow-up in the office for further evaluation. I would recommend repeat ultrasound in approximately 4 to 6 weeks as the ovarian finding may represent nothing more than a complex left ovarian cyst which may resolve spontaneously. I will continue to follow loosely over the course of the patient's hospitalization.
[2024-03-16] MEDS: ENOXAPARIN 40 MG/0.4 ML SYRINGE SQ SCH (10:11)
[2024-03-16] MEDS: IBUPROFEN 600 MG TAB PO PRN (10:14)
[2024-03-16] MEDS: ONDANSETRON 4 MG/2 ML VIAL IVP PRN (10:15)
[2024-03-16] MEDS: DOXYCYCLINE 100 MG in SODIUM CHLORIDE 0.9% 100 ML IVPB SCH (12:17)
[2024-03-16] MEDS ORDERED: traZODone HCL 50 MG TAB PO PRN (12:24)
--- NOTE | 2024-03-16 12:25 | P.PN ---
Subjective Progress Note Date: 03/16/24 Patient reports her symptoms have drastically improved. She did have 1 low- grade fever last night of 100.8. Otherwise, she reports low appetite which is improving overall. She has had a bowel movement. Her abdominal pain is better but still present in the left lower quadrant. Heart rates have improved from 100s to 80s. Blood pressures have been stable. Gen: In NAD, non-toxic HEENT: normocephalic, atraumatic, hearing acuity is intant, mucous membranes moist CVS: perfusing all extremities well, no pitting edema, Respiratory: symmetric chest expansion, no accessory muscle use, GI: soft, left lower quadrant tenderness, no rebound no guarding : no suprapubic tenderness, no CVA tenderness MSK/Derm: no rashes, cyanosis Neuro: CN II-XII intact, no motor weakness, Psych: cooperative, euthymic mood, judgment and insight is intact Hospital course: Patient is a 53-year-old female with PMH of anxiety and depression who had presented to the emergency room with complaints of abdominal pain with nausea and vomiting. Patient reports that her symptoms started roughly 5 to 6 days ago with left-sided abdominal achiness. Over the following few days, she developed nausea with persistent vomiting and inability to tolerate liquids or solids. Notes that the pain has been gradually worsening, left lower quadrant, nonradiating, 8 out of 10 at maximal intensity, worsened with movement, with no clear alleviating factors. Denies fever or chills. Also reports constipation during this time. Does report history of diverticulosis. Denies history of pelvic inflammatory disease or STIs. Does note however that she has been with a new partner over the last 1 year and is requesting screening for STIs. CT abdomen and pelvis in the emergency room revealed inflammation of the left ovary, concerning for tubo-ovarian abscess versus ovarian torsion with some mural thickening of the adjacent sigmoid colon suspected reactive. There was adjacent diverticulosis without overt findings of acute diverticulitis. Subsequent transvaginal ultrasound revealed good arterial and venous flow within the ovaries with no evidence for ovarian torsion with an IUD in place. Laboratory evaluation did reveal leukocytosis of 15.3, sodium 135 potassium 3.3, creatinine 0.14, glucose 110, with UA showing 7 WBC, 6 RBCs, with moderate leukocyte esterase and trace ketones. ED documentation reviewed and case discussed with ED provider. Review of systems: Pertinent positives and negatives as discussed in HPI, a complete review of systems was performed and all other systems are negative. Physical examination: Vital signs reviewed General: non toxic, no distress, appears at stated age, normal weight Derm: no unusual rashes/lesions, warm Head: atraumatic, normocephalic, symmetric Eyes: EOMI, no lid lag, anicteric sclera, pupils equal round reactive to light ENT: Nose and ears atraumatic Neck: No cervical lymphadenopathy, trachea midline, supple Mouth: no lip lesion, mucus membranes moist Cardiovascular: S1S2 reg, no murmur, positive dorsalis pedis pulse bilateral, no edema Lungs: CTA bilateral, no rhonchi, no rales, no accessory muscle use Abdominal: soft, left lower quadrant tenderness with minimal guarding, no rigidity or rebound tenderness noted Ext: muscle strength 5 out of 5 in all 4 extremities grossly, no gross muscle atrophy, no contractures, Neuro: CN II-XI grossly intact, no gross focal neuro deficits Psych: Alert, oriented, appropriate affect Assessment: Sepsis secondary to diverticulitis Hypokalemia Hyponatremia -Continue patient on cefoxitin and doxycycline -Infectious disease and MANAGER SECURITY consulted -Follow-up blood cultures -Continue with IV fluid: normal saline reduced to 50 cc/h -Morphine for pain control -Continue with antiemetics Zofran -Replace potassium and monitor for resolution -Monitor BMP -Perform STI screen as requested by patient Chronic conditions: Anxiety, depression -Home medications reviewed and reconciled DVT prophylaxis: Lovenox subcu The patient is admitted with an anticipated fewer than 2 midnight stay for evaluation of sepsis CODE STATUS: Full Code Discussed with: Patient Anticipated discharge place: Home Objective - Vital Signs Vital signs: Vital Signs Temp 98.1 F 03/16/24 08:00 Pulse 98 03/16/24 08:00 Resp 16 03/16/24 08:00 BP 94/63 03/16/24 08:00 Pulse Ox 98 03/16/24 08:00 FiO2 Intake & Output 03/15/24 03/16/24 03/16/24 18:59 06:59 18:59 Intake Total 480 Balance 480 Weight 63.957 kg 63.957 kg Intake: Oral 480 Other: # Voids 2 - Labs CBC & Chem 7: 03/16/24 03:09 03/16/24 03:09 Labs: Abnormal Lab Results - Last 24 Hours (Table) 03/15/24 03/15/24 03/15/24 Range/Units 14:10 14:10 16:53 WBC 15.3 H (3.8-10.6) k/uL RBC (3.80-5.40) m/uL Hgb (11.4-16.0) gm/dL Hct (34.0-46.0) % Neutrophils # 13.2 H (1.3-7.7) k/uL Sodium 135 L (137-145) mmol/L Potassium 3.3 L (3.5-5.1) mmol/L Creatinine 0.49 L (0.52-1.04) mg/dL Glucose 110 H (74-99) mg/dL Ur Specific [place] >1.050 H (1.001-1.035) Urine Protein Trace H (Negative) Urine Ketones Trace H (Negative) Ur Leukocyte Esterase Moderate H (Negative) Urine RBC 6 H (0-5) /hpf Urine WBC 7 H (0-5) /hpf Urine Mucus Few H (None) /hpf 03/16/24 03/16/24 Range/Units 03:09 03:09 WBC 12.4 H (3.8-10.6) k/uL RBC 3.50 L (3.80-5.40) m/uL Hgb 11.0 L (11.4-16.0) gm/dL Hct 33.2 L (34.0-46.0) % Neutrophils # 10.2 H (1.3-7.7) k/uL Sodium 132 L (137-145) mmol/L Potassium (3.5-5.1) mmol/L Creatinine 0.45 L (0.52-1.04) mg/dL Glucose 71 L (74-99) mg/dL Ur Specific [place] (1.001-1.035) Urine Protein (Negative) Urine Ketones (Negative) Ur Leukocyte Esterase (Negative) Urine RBC (0-5) /hpf Urine WBC (0-5) /hpf Urine Mucus (None) /hpf
[2024-03-16] MEDS: ARIPiprazole 2 MG TAB PO SCH (21:22)
[2024-03-16] MEDS: ESCITALOPRAM 20 MG TAB PO SCH (21:22)
[2024-03-16] MEDS: MORPHINE SULFATE 4 MG/ML SYRINGE IV PRN (21:44)
[2024-03-16 23:44] VITALS: RESP 16
--- NOTE | 2024-03-17 08:34 | P.PN ---
Subjective Progress Note Date: 03/17/24 Principal diagnosis: Acute left lower quadrant pain The patient feels that she has generally improved. She did have the reonset of nausea and subsequent diarrhea after tolerating regular solid food, albeit, a roll. She does continue to report generalized abdominal pain primarily confined to the bilateral lower quadrants. She reports significant pelvic pressure when sitting on the toilet. Objective - Vital Signs Vital signs: Vital Signs Temp 99.3 F 03/16/24 23:41 Pulse 98 03/16/24 23:41 Resp 16 03/16/24 23:41 BP 107/70 03/16/24 23:41 Pulse Ox 97 03/16/24 23:41 FiO2 Intake & Output 03/16/24 03/17/24 03/17/24 18:59 06:59 18:59 Intake Total 900 Balance 900 Intake: Intake, IV Titration 800 Amount Sodium Chloride 0.9% 1, 600 000 ml @ 130 mls/hr IV . Q7H42M [facility] Rx#:[id number] cefOXitin 2 gm In Sodium 200 Chloride 0.9% 100 ml @ 200 mls/hr IVPB Q6H [facility] Rx#:[id number] Oral 100 Other: # Voids 2 2 # Bowel Movements 3 4 - Exam In general, this is a well-developed, well-nourished white female in no acute distress. Her heart has a regular rhythm and rate without murmur. Her lungs are clear to auscultation bilaterally in all wong. Her abdomen remains mildly and generally tender with the primary's source of pain in the bilateral lower quadrants, left slightly greater than right. There is no rebounding nor guarding. Pain is overall improved from yesterday's exam. Her extremities are without any cyanosis, clubbing, or edema and are nontender to palpation bilaterally. - Labs CBC & Chem 7: 03/16/24 03:09 03/16/24 03:09 Labs: Microbiology - Last 24 Hours (Table) 03/15/24 20:02 Blood Culture - Preliminary Blood Assessment and Plan (1) LLQ pain Current Visit: Yes Status: Acute Code(s): R10.32 - LEFT LOWER QUADRANT PAIN SNOMED Code(s): 494075849 Plan: I do not feel that this is likely of gynecologic origin though she very well may have a complex left ovarian cyst which will require follow-up in the outpatient. I am significantly more concerned for the possibility of diverticular issues and wonder if, as she is hospitalized, consideration would be given for either GI or general surgery consultation and subsequent colonoscopy. This might further guide ongoing outpatient treatment. I will continue to follow the case.
--- NOTE | 2024-03-17 09:27 | P.PN ---
Subjective Progress Note Date: 03/17/24 Patient reports that she has ongoing pelvic pain, that was worsened yesterday. She has not spiked any fevers since admission. She does report that she required morphine as a consequence of this pain last night. She has had multiple episodes of diarrhea, nausea has returned but is improved with Zofran, no episodes of emesis. Labs today are pending. Gen: In NAD, non-toxic HEENT: normocephalic, atraumatic, hearing acuity is intant, mucous membranes moist CVS: perfusing all extremities well, no pitting edema, Respiratory: symmetric chest expansion, no accessory muscle use, GI: soft, left lower quadrant tenderness, no rebound no guarding : no suprapubic tenderness, no CVA tenderness MSK/Derm: no rashes, cyanosis Neuro: CN II-XII intact, no motor weakness, Psych: cooperative, euthymic mood, judgment and insight is intact Hospital course: Patient is a 53-year-old female with PMH of anxiety and depression who had presented to the emergency room with complaints of abdominal pain with nausea and vomiting. Patient reports that her symptoms started roughly 5 to 6 days ago with left-sided abdominal achiness. Over the following few days, she developed nausea with persistent vomiting and inability to tolerate liquids or solids. Notes that the pain has been gradually worsening, left lower quadrant, nonradiating, 8 out of 10 at maximal intensity, worsened with movement, with no clear alleviating factors. Denies fever or chills. Also reports constipation during this time. Does report history of diverticulosis. Denies history of pelvic inflammatory disease or STIs. Does note however that she has been with a new partner over the last 1 year and is requesting screening for STIs. CT abdomen and pelvis in the emergency room revealed inflammation of the left ovary, concerning for tubo-ovarian abscess versus ovarian torsion with some mural thickening of the adjacent sigmoid colon suspected reactive. There was adjacent diverticulosis without overt findings of acute diverticulitis. Subsequent transvaginal ultrasound revealed good arterial and venous flow within the ovaries with no evidence for ovarian torsion with an IUD in place. Laboratory evaluation did reveal leukocytosis of 15.3, sodium 135 potassium 3.3, creatinine 0.14, glucose 110, with UA showing 7 WBC, 6 RBCs, with moderate leukocyte esterase and trace ketones. ED documentation reviewed and case discussed with ED provider. Assessment: Sepsis secondary to diverticulitis Hypokalemia Hyponatremia -change antibiotics to ciprofloxacin/flagyl -Infectious disease and [employer]UM[employer] INSTRUCTOR consulted -Gen surgery consulted -Follow-up blood cultures -Continue with IV fluid: normal saline reduced to 50 cc/h -Morphine for pain control -Continue with antiemetics Zofran -Replace potassium and monitor for resolution -Monitor BMP -Perform STI screen as requested by patient Chronic conditions: Anxiety, depression -Home medications reviewed and reconciled DVT prophylaxis: Lovenox subcu The patient is admitted with an anticipated fewer than 2 midnight stay for evaluation of sepsis CODE STATUS: Full Code Discussed with: Patient Anticipated discharge place: Home Objective - Vital Signs Vital signs: Vital Signs Temp 99.3 F 03/16/24 23:41 Pulse 98 03/16/24 23:41 Resp 16 03/16/24 23:41 BP 107/70 03/16/24 23:41 Pulse Ox 97 03/16/24 23:41 FiO2 Intake & Output 03/16/24 03/17/24 03/17/24 18:59 06:59 18:59 Intake Total 900 Balance 900 Intake: Intake, IV Titration 800 Amount Sodium Chloride 0.9% 1, 600 000 ml @ 130 mls/hr IV . Q7H42M [facility] Rx#:[id number] cefOXitin 2 gm In Sodium 200 Chloride 0.9% 100 ml @ 200 mls/hr IVPB Q6H [facility] Rx#:[id number] Oral 100 Other: # Voids 2 2 # Bowel Movements 3 4 - Labs CBC & Chem 7: 03/16/24 03:09 03/16/24 03:09 Labs: Microbiology - Last 24 Hours (Table) 03/15/24 20:02 Blood Culture - Preliminary Blood
[2024-03-17 09:51] LABS: Basophils % (A) 0 %; Eosinophils # (A) 0.2 k/uL (0-0.7); Eosinophils % (A) 2 %; HCT 34.5 % (34.0-46.0); HGB 11.9 gm/dL (11.4-16.0); Lymphocytes # (A) 0.9 k/uL (1.0-4.8); Lymphocytes % (A) 9 %; MCHC 34.5 g/dL (31.0-37.0); MCV 95.7 fL (80.0-100.0); Mean Platelet Volume 8.5; Monocytes # (A) 0.8 k/uL (0-1.0); Monocytes % (A) 8 %; Neutrophils % (A) 80 %; Platelet Count 272 k/uL (150-450); RDW 14.1 % (11.5-15.5); WBC 9.9 k/uL (3.8-10.6)
[2024-03-17] MEDS: PANTOPRAZOLE 40 MG TABLET PO SCH (10:05)
[2024-03-17] MEDS: metroNIDAZOLE 500 MG TAB PO SCH (10:06)
[2024-03-17 10:42] LABS: African American GFR (CKD) >90 (>60 ml/min/1.73 sqM); Anion Gap 5 mmol/L; Blood Urea Nitrogen 6 mg/dL (7-17); Calcium 8.9 mg/dL (8.4-10.2); Carbon Dioxide 27 mmol/L (22-30); Chloride 104 mmol/L (98-107); Glucose 76 mg/dL (74-99); Non-African American GFR(CKD) >90 (>60 ml/min/1.73 sqM); Potassium 3.6 mmol/L (3.5-5.1); Sodium 136 mmol/L (137-145)
[2024-03-17] MEDS ORDERED: IOPAMIDOL CONTRAST (ORAL USE) VIAL PO PRN (14:21)
--- NOTE | 2024-03-17 14:35 | P.PN ---
Subjective Progress Note Date: 03/17/24 Principal diagnosis: Reason for follow-up is possible diverticulitis/tubo-ovarian abscess and multiple antibiotic allergies Patient is a 53-year-old female with past medical history significant for GERD Raynaud's crest disease, presenting to the ER for evaluation of ab dominal pain apparently patient symptom has been going on for about a week there was a question of possible diverticulitis versus left tubo-ovarian abscess patient did have multiple antibiotic allergies prompting this consultation. On today's evaluation that is 03/17/2024, the patient continues to be afebrile, the patient is on room air and breathing comfortably, the Pt denies having any chest pain or cough, the patient has been complaining of more abdominal pain since last evening across the lower abdominal area nausea but no vomiting and did have some diarrhea but no blood or mucus in the stool. Patient white count is down to 9.9, creatinine 0.43 Objective - Vital Signs Vital signs: Vital Signs Temp 98.1 F 03/17/24 09:52 Pulse 99 03/17/24 09:52 Resp 16 03/17/24 09:52 BP 118/76 03/17/24 09:52 Pulse Ox 98 03/17/24 09:52 FiO2 Intake & Output 03/16/24 03/17/24 03/17/24 18:59 06:59 18:59 Intake Total 900 Balance 900 Intake: Intake, IV Titration 800 Amount Sodium Chloride 0.9% 1, 600 000 ml @ 130 mls/hr IV . Q7H42M [facility] Rx#:[id number] cefOXitin 2 gm In Sodium 200 Chloride 0.9% 100 ml @ 200 mls/hr IVPB Q6H [facility] Rx#:[id number] Oral 100 Other: # Voids 2 2 # Bowel Movements 3 4 - Exam GENERAL DESCRIPTION: Middle-aged female lying in bed in no distress RESPIRATORY SYSTEM: Unlabored breathing , decreased breath sounds at bases HEART: S1 S2 regular rate and rhythm , ABDOMEN: Soft , lower abdominal especially left-sided tenderness EXTREMITIES: No edema feet - Labs CBC & Chem 7: 03/17/24 09:36 03/17/24 09:36 Labs: Abnormal Lab Results - Last 24 Hours (Table) 03/17/24 Range/Units 09:36 RBC 3.60 L (3.80-5.40) m/uL Neutrophils # 8.0 H (1.3-7.7) k/uL Lymphocytes # 0.9 L (1.0-4.8) k/uL Microbiology - Last 24 Hours (Table) 03/15/24 20:02 Blood Culture - Preliminary Blood Assessment and Plan (1) Allergy to multiple antibiotics Current Visit: Yes Status: Acute Code(s): Z88.1 - ALLERGY STATUS TO OTHER ANTIBIOTIC AGENTS SNOMED Code(s): 052425360 (2) Diverticulitis Current Visit: Yes Status: Acute Code(s): K57.92 - DVTRCLI OF INTEST, PART UNSP, W/O PERF OR ABSCESS W/O BLEED SNOMED Code(s): 964509602 (3) Tubo-ovarian abscess Current Visit: Yes Status: Acute Code(s): N70.93 - SALPINGITIS AND OOPHORITIS, UNSPECIFIED SNOMED Code(s): 07116898 Plan: 1patient presented to hospital with lower abdominal pain patient also have fever elevated white count abnormality seen on CT and ultrasound has been s uggestive of possible left tubo-ovarian abscess there was some inflammation seen in the sigmoid colon with a question of possible diverticulitis ruptured and affecting the adjacent ovary to be the likely explanation and likely need to cover for the enteric gram-negative both aerobes and anaerobes, especially with the symptoms worsening after the patient did have more food intake 2-patient with multiple antibiotic ALLERGIES that would limit the number of antibiotic safe to use 3-we will discontinue IV Rocephin and oral Flagyl switched over to cefepime and Flagyl get a CT of abdominal pelvis without contrast in the a.m. for better definition of abdominal pathology also the patient should be made n.p.o. for bowel rest This has been discussed in detail with the admitting team Dictation was produced using [employer] dictation software. please excuse any grammatical, word or spelling errors. Time with Patient: Greater than 30
[2024-03-17] MEDS: metroNIDAZOLE-NS PMX 500 MG in SALINE 1 100ML.BAG IVPB SCH (16:06)
[2024-03-17] MEDS: CEFEPIME 2 GM in SODIUM CHLORIDE 0.9% 100 ML IVPB SCH (16:14)
[2024-03-18] MEDS ORDERED: CEFEPIME 2 GM VIAL IVPB ONE (00:01)
[2024-03-18] MEDS ORDERED: IOPAMIDOL-300 30ML BTL ONE (00:01)
[2024-03-18] MEDS ORDERED: SODIUM CHLORIDE 0.9% 1,000 ML BAG ONE (00:01)
[2024-03-18] MEDS ORDERED: SODIUM CHLORIDE 0.9% 100 ML BAG IV ONE (00:01)
[2024-03-18] MEDS ORDERED: metroNIDAZOLE-NS PMX 500 MG/100 ML BAG ONE (00:01)
[2024-03-18 03:42] VITALS: BP 118/76; PULSE 102; TEMP 99.2
[2024-03-18 07:10] LABS: Basophils % (A) 0 %; Eosinophils # (A) 0.1 k/uL (0-0.7); Eosinophils % (A) 1 %; HCT 31.3 % (34.0-46.0); HGB 10.5 gm/dL (11.4-16.0); Lymphocytes # (A) 0.7 k/uL (1.0-4.8); Lymphocytes % (A) 11 %; MCH 32.2 pg (25.0-35.0); MCHC 33.6 g/dL (31.0-37.0); MCV 95.8 fL (80.0-100.0); Mean Platelet Volume 8.7; Monocytes # (A) 0.6 k/uL (0-1.0); Monocytes % (A) 9 %; Neutrophils # (A) 5.3 k/uL (1.3-7.7); Neutrophils % (A) 77 %; Platelet Count 254 k/uL (150-450); RBC 3.26 m/uL (3.80-5.40); WBC 6.9 k/uL (3.8-10.6)
[2024-03-18 07:19] LABS: African American GFR (CKD) >90 (>60 ml/min/1.73 sqM); Anion Gap 2 mmol/L; Blood Urea Nitrogen 4 mg/dL (7-17); Calcium 8.7 mg/dL (8.4-10.2); Carbon Dioxide 29 mmol/L (22-30); Chloride 104 mmol/L (98-107); Glucose 81 mg/dL (74-99); Magnesium 1.5 mg/dL (1.6-2.3); Non-African American GFR(CKD) >90 (>60 ml/min/1.73 sqM); Potassium 3.9 mmol/L (3.5-5.1); Sodium 135 mmol/L (137-145)
[2024-03-18] MEDS ORDERED: MORPHINE SULFATE 4 MG/ML SYRINGE ONE ×3 (10:54→21:52)
--- NOTE | 2024-03-18 12:09 | PN ---
PROGRESS NOTE DATE OF SERVICE: 03/18/2024 Please note that the computers are down today and I have no access to the computer chart. SUBJECTIVE: Edith is here with left lower quadrant abdominal pain. The patient reports that initially pain was 8/10 on admission. She is starting to feel a little better. She is rating her pain as 5/10 today. She describes her pain as cramping and sharp in the left lower quadrant. She is no longer having any nausea or vomiting. Her diarrhea that she was having has also improved. She has no blood in her stools. White count is down from 15 to 6.8 per nursing staff. PHYSICAL EXAMINATION: The patient is tender in the left lower quadrant and mildly distended. ASSESSMENT AND PLAN: Acute diverticulitis. We will continue with antibiotics. Keep patient n.p.o. currently. Awaiting CT scan results. Further recommendations forthcoming per surgeon. MMEJL / IJN: [id number] /
[2024-03-18] MEDS ORDERED: ONDANSETRON 4 MG/2 ML VIAL ONE (14:52)
[2024-03-18] MEDS ORDERED: ACETAMINOPHEN TAB 325 MG TAB ONE (19:49)
[2024-03-19] MEDS ORDERED: SODIUM CHLORIDE 0.9% 1,000 ML BAG ONE (00:01)
[2024-03-19] MEDS ORDERED: metroNIDAZOLE-NS PMX 500 MG/100 ML BAG ONE (00:01)
[2024-03-19] MEDS ORDERED: CEFEPIME 2 GM VIAL IVPB ONE (00:01)
[2024-03-19] MEDS ORDERED: traZODone HCL 50 MG TAB ONE (00:01)
[2024-03-19] MEDS ORDERED: SODIUM CHLORIDE 0.9% 100 ML BAG IV ONE (00:01)
[2024-03-19] MEDS ORDERED: ACETAMINOPHEN TAB 325 MG TAB ONE ×3 (00:55→21:51)
[2024-03-19] MEDS ORDERED: MORPHINE SULFATE 4 MG/ML SYRINGE ONE ×2 (04:00→10:41)
[2024-03-19] MEDS ORDERED: ONDANSETRON 4 MG/2 ML VIAL ONE ×2 (04:00→16:11)
[2024-03-20] MEDS ORDERED: ACETAMINOPHEN TAB 325 MG TAB ONE ×2 (07:00→13:05)
[2024-04-10 07:24] LABS: C. trachomatis,PCR Negative (Negative); N. gonorrhoeae,PCR Negative (Negative)
--- NOTE | 2024-04-11 08:00 | CT ---
EXAM: CT Abdomen and Pelvis With Intravenous Contrast CLINICAL HISTORY: LLQ pain, perforated diverticulitis TECHNIQUE: Axial computed tomography images of the abdomen and pelvis with intravenous contrast. CTDI is 14.1 mGy and DLP is 585.4 mGy-cm. This CT exam was performed using one or more of the following dose reduction techniques: automated exposure control, adjustment of the mA and/or kV according to patient size, and/or use of iterative reconstruction technique. COMPARISON: No relevant prior studies available. FINDINGS: Trace right pleural effusion and atelectasis. 5 mm left lower lobe juxtapleural nodule on series 3, image 12. 4 mm juxtapleural RLL nodule on image 8. Breast implants. Distended gallbladder and common hepatic duct. Tapering of the common bile duct and no radiopaque calculus, but consider correlation with laboratory markers. Pancreatic atrophy without ductal dilation or findings of acute pancreatitis. No clear pancreatic head mass. 1.3 cm fat density lesion to the posterior right renal cortex suggesting a benign angiomyolipoma. No hydronephrosis. The spleen, adrenal glands, and left kidney are unremarkable. Multilocular cystic left adnexal mass arising within or near the left ovary measuring 5 x 3.2 cm in total. Surrounding edema. Consider tubo-ovarian abscess or other complex cyst. This is adjacent to the sigmoid colon, but sequela of diverticulitis or other colitis is felt to be less likely than a primary adnexal process. No free air. Small amount of nonloculated free pelvic fluid. Centrally positioned intrauterine device. No bowel obstruction. The appendix is unremarkable. No abdominal aortic aneurysm. Small para-aortic lymph nodes are nonspecific, but could be reactive to the adnexal process. Mild body wall edema. Small fatty periumbilical hernia. Spondylosis with degeneration most pronounced at L5-S1. Other bony degenerative changes. No acute fracture. IMPRESSION: Multilocular cystic left adnexal mass arising within or near the left ovary measuring 5 x 3.2 cm in total. Surrounding edema. Consider tubo-ovarian abscess or other complex cyst. This is adjacent to the sigmoid colon, but sequela of diverticulitis or other colitis is felt to be less likely than a primary adnexal process. Small amount of nonloculated free pelvic fluid. No free air. Distended gallbladder and common hepatic duct. Tapering of the common bile duct and no radiopaque calculus, but consider correlation with laboratory markers. 5 mm left lower and 4 mm right lower lobe nodules. If there are risk factors for malignancy, consider follow-up chest CT in 12 months. Trace right pleural effusion with adjacent atelectasis. Incidental findings as above. Radiologist: Samson Dillard M.D. Electronically Signed: 03/18/24 15:14 Study ready at 10:04 and initial results transmitted at 15:14 [facility]
== END 2024-03-20 11:40 | disposition home or self-care (01) ==
LOC: EC 13:44 → UNDOADMOB 20:55 → 6NMEDSUR 20:55 → 4FBP 21:20 → 6NMEDSUR 21:20 → 4FBP 22:36 → UNDOADMOB 04-04 20:56 → 4FBP 04-04 20:56
PROVIDERS: ADMIT Internal Medicine; ATTEND Internal Medicine
DX: A41.9 Sepsis, unspecified organism (principal); N70.93 Salpingitis and oophoritis, unspecified; K57.32 Diverticulitis of large intestine without perforation or abscess without bleeding; E87.6 Hypokalemia; E87.1 Hypo-osmolality and hyponatremia; K21.9 Gastro-esophageal reflux disease without esophagitis; F32.A Depression, unspecified; F41.9 Anxiety disorder, unspecified; Z87.891 Personal history of nicotine dependence; Z79.899 Other long term (current) drug therapy; Z88.0 Allergy status to penicillin; Z88.1 Allergy status to other antibiotic agents; Z88.2 Allergy status to sulfonamides
CPT/HCPCS: 36415; 80053; 80048 ×2; 82150; 83605; 83690; 85025 ×3; 81001; 81025; 87040; 87491; 87591; 86780; 93976; 76830; 74177; J2270 ×4; J2405 ×3; J0694 ×3; J0696; J0692; Q9967; J1836; 83735; 87045; 87046; 87324; 96361; 96365; 96366; 96367; 96375; 96376; 99285

== ENCOUNTER → 2024-05-07 | Outpatient (CLI) | payer OTHER ==
--- NOTE | 2024-05-07 15:42 | CT ---
EXAMINATION TYPE: CT abdomen pelvis w con DATE OF EXAM: 05/07/2024 COMPARISON: None HISTORY: Follow up for diverticulitis, abdominal pain and diarrhea x3 months CT DLP: 465.30 mGycm CONTRAST: CT scan of the abdomen and pelvis is performed with Oral Contrast and with IV Contrast, patient injec saurabh with 100 ml mL of Isovue 300. FINDINGS: LUNG BASES-: No visible nodule. No infiltrate. LIVER/GB: No calcified gallstones. No space occupying hepatic lesion. Biliary tree is of normal ca liber. PANCREAS: No inflammation. No distinct mass. SPLEEN: No splenic enlargement. No lesion seen. ADRENALS: No nodule. No thickening. KIDNEYS/BLADDER: No hydronephrosis. No nephrolithiasis. No distinct renal mass. Urinary bladder g rossly unremarkable. BOWEL: Normal appendix. Normal bowel caliber. No inflammation. GENITAL ORGANS: No gross abnormality. LYMPH NODES: No greater than 1cm abdominal or pelvic lymph nodes are appreciated. AORTA: No significant abnormality. OSSEOUS STRUCTURES: No significant abnormality is seen. OTHER: No significant additional abnormality is seen. IMPRESSION: 1. No acute process seen. [facility] Radha Stewart, , 05/07/2024 3:40 PM
== END | disposition home or self-care (01) ==
LOC: RADCTMAIN 13:31
PROVIDERS: ATTEND Surgery
DX: K57.32 Diverticulitis of large intestine without perforation or abscess without bleeding (principal)
CPT/HCPCS: 36415; 74177

== ENCOUNTER 2024-07-02 08:51 | Day surgery (SDC) | payer OTHER ==
[2024-06-28 12:49] VITALS: BMI 22.4
[2024-07-02] MEDS: IV FLUID CONTINUATION 1,000 ML IV ONE (09:18)
[2024-07-02 09:24] VITALS: TEMP 97.2
[2024-07-02] MEDS: LACTATED RINGERS 1,000 ML IV SCH (09:39)
[2024-07-02] MEDS ORDERED: LIDOCAINE 1% INJ 10MG/ML (20 ML MDV) ONE (10:08)
[2024-07-02] MEDS ORDERED: PROPOFOL 10 MG/ML 20 ML VIAL IV ONE (10:08)
--- NOTE | 2024-07-02 10:14 | P.GSHP ---
History of Present Illness H&P Date: 07/02/24 Chief Complaint: GERD, satiety, diverticulitis 51-year-old female known to our service. Patient was recently hospitalized with either complex left ovarian cyst for sigmoid diverticulitis with small abscess. Follow-up CAT scan in April showed resolution of that area. She has seen 2 different bark peeler who do not feel that the left ovary is of concern. Patient having frequent diarrhea. Often has to use the restroom with loose stools within 30 minutes of eating. Early satiety. Some weight loss. Past Medical History Past Medical History: GERD/Reflux Additional Past Medical History / Comment(s): raynauds, crest disease, diverticulitis History of Any Multi-Drug Resistant Organisms: None Reported Past Surgical History: Back Surgery, Orthopedic Surgery Additional Past Surgical History / Comment(s): bladder sling-2009, left foot surgery 2018 Past Anesthesia/Blood Transfusion Reactions: No Reported Reaction Smoking Status: Never smoker - Past Family History Mother Family Medical History: Cancer Additional Family Medical History / Comment(s): pancreatic Father Family Medical History: Coronary Artery Disease (CAD) Additional Family Medical History / Comment(s): alcoholism. from [place] Medications and Allergies Home Medications Medication Instructions Recorded Confirmed Type Pantoprazole Sodium [Protonix] 40 mg PO DAILY 12/28/16 06/28/24 History ARIPiprazole [Abilify] 1 mg PO HS 03/15/24 06/28/24 History Escitalopram [Lexapro] 10 mg PO HS 03/15/24 06/28/24 History Allergies Allergy/AdvReac Type Severity Reaction Status Date / Time cephalexin [From Keflex] Allergy Rash/Hives Verified 07/02/24 09:16 Penicillins Allergy Rash/Hives Verified 07/02/24 09:16 Sulfa (Sulfonamide Allergy Rash/Hives Verified 07/02/24 09:16 Antibiotics) sulfamethoxazole Allergy Rash/Hives Verified 07/02/24 09:16 [From Bactrim] trimethoprim [From Bactrim] Allergy Rash/Hives Verified 07/02/24 09:16 Surgical - Exam Vital Signs Temp Pulse Resp BP Pulse Ox 97.2 F L 71 16 131/87 95 07/02/24 09:19 07/02/24 09:19 07/02/24 09:19 07/02/24 09:19 07/02/24 09:19 Physical exam: General: Well-developed, well-nourished HEENT: Normocephalic, sclerae nonicteric Abdomen: Nontender, nondistended Extremities: No edema Neuro: Alert and oriented Assessment and Plan (1) Diverticulitis Narrative/Plan: Will proceed with upper and lower endoscopy at this time. Current Visit: No Status: Acute Code(s): K57.92 - DVTRCLI OF INTEST, PART UNSP, W/O PERF OR ABSCESS W/O BLEED SNOMED Code(s): 735841452
--- NOTE | 2024-07-02 10:32 | P.PCN ---
Date of Procedure: 07/02/24 Procedure(s) Performed: PREOPERATIVE DIAGNOSIS: GERD, satiety, diverticulitis POSTOPERATIVE DIAGNOSIS: Mild gastritis, small hiatal hernia, mild distal esophagitis, diverticulosis PROCEDURE: 1. EGD with biopsy 2. Colonoscopy ANESTHESIA: MAC SURGEON: Chip Kumar M.D. SPECIMENS: Antrum, distal esophagus ENDOSCOPIC PROCEDURE: The patient was on the endoscopy table in the left decubitus position. The Olympus gastroscope was inserted into the oropharynx and passed under direct visualization to the region of the third portion of the duodenum. From that point the scope was slowly withdrawn inspecting all surfaces carefully. There were no neoplastic inflammatory or polypoid lesions throughout the duodenum. The pylorus was widely patent. The stomach was carefully inspected. There was mild gastritis present. A biopsy of the antrum took place to rule out H. pylori. Retroflexion revealed a small hiatal hernia. The GE junction was present 1.5 cm above the diaphragmatic hiatus. At the distal esophagus there was noncircumferential inflammatory changes present. This would be consistent with grade B esophagitis. The mid and proximal esophagus appeared normal. The patient was kept on the endoscopy table in the left decubitus position. The Olympus colonoscope was inserted into the anus and passed under direct visualization to the base of the cecum. The appendiceal orifice was visualized. From that point the scope was slowly withdrawn inspecting all surfaces carefully. There were no neoplastic inflammatory or polypoid lesions throughout the cecum, ascending, transverse, descending, sigmoid and rectum. There was mild sigmoid diverticulosis noted without inflammatory changes. Digital rectal examination was normal. The patient was taken to the recovery room in stable condition per anesthesia guidelines. RECOMMENDATIONS: Await biopsy results. Continue antiacid therapy. Repeat colonoscopy 10 years.
[2024-07-02 10:51] VITALS: RESP 14
[2024-07-02 10:53] VITALS: BP 111/71; PULSE 63
== END 2024-07-02 11:18 | disposition home or self-care (01) ==
LOC: ORWHC2ENDO 08:51
PROVIDERS: ATTEND Surgery
DX: K29.50 Unspecified chronic gastritis without bleeding (principal); K21.00 Gastro-esophageal reflux disease with esophagitis, without bleeding; K44.9 Diaphragmatic hernia without obstruction or gangrene; K57.30 Diverticulosis of large intestine without perforation or abscess without bleeding; I73.00 Raynaud's syndrome without gangrene; F10.90 Alcohol use, unspecified, uncomplicated; Z88.0 Allergy status to penicillin; Z88.1 Allergy status to other antibiotic agents; Z88.2 Allergy status to sulfonamides; Z79.899 Other long term (current) drug therapy; Z98.890 Other specified postprocedural states
CPT/HCPCS: 88305; 45378; 43239; J2003; J2704